=== PATIENT | male | born 1960 | race Caucasian/White ===

== ENCOUNTER 2016-09-24 13:31 | Emergency (ER) | payer BC ==
[~2016-09-24 13:31] MED LIST: *DENIES
[2016-09-24 13:48] LABS: BASOPHILS 0.3 %; BASOPHILS ABSOLUTE 0.02 10/3/uL (0.0-0.16); EOSINOPHILS 1.6 %; HEMATOCRIT 40.2 % (40.0-51.0); IMMATURE GRANULOCYTES 0.2 %; IMMATURE GRANULOCYTES ABSOLUTE 0.01 10/3/uL (0.0-0.11); LYMPHOCYTES 23.9 %; LYMPHOCYTES ABSOLUTE 1.52 10/3/uL (0.67-4.30); MANUAL DIFF NO %; MEAN CORPUS HGB CONC 34.8 g/dL (32.0-36.0); MEAN CORPUSCULAR HEMOGLOB 30.9 pg (26.0-34.0); MEAN CORPUSCULAR VOLUME 88.7 fL (80-100); MEAN PLATELET VOLUME 9.6 fL (9.2-13.0); MONOCYTES ABSOLUTE 0.51 10/3/uL (0.21-1.20); NEUTROPHILS ABSOLUTE 4.19 10/3/uL (2.02-8.40); PLATELET COUNT 287 10/3/uL (150-400); RBC DISTRIBUTION WIDTH 12.6 % (12.0-16.0); RED CELL COUNT 4.53 10/6/uL (4.7-6.1); WHITE BLOOD CELLS 6.4 10/3/uL (4.5-10.5)
[2016-09-24 13:56] LABS: INTERNATIONAL NORMAL RATI 0.9 UNITS (-); PARTIAL THROMBO TIME 27.5 SEC (22.5-37.2); PROTIME (NOT ORD) 12.3 SEC (12.0-14.5)
[2016-09-24 14:03] LABS: BUN (BLOOD UREA NITROGEN) 9 MG/DL (6-23); CALCIUM, SERUM 9.5 MG/DL (8.5-10.4); CHLORIDE, SERUM 103 MMOL/L (96-112); CO2 (CARBON DIOXIDE) 23 MMOL/L (24-34); CREATININE 0.99 MG/DL (0.70-1.30); GFR AFRICAN AMERICAN 98 ML/MIN (>=60); GFR NON AFRICAN AMERICAN 85 ML/MIN (>=60); GLUCOSE, SERUM 181 MG/DL (60-99); POTASSIUM, SERUM 3.2 MMOL/L (3.5-5.3); SODIUM, SERUM 136 MMOL/L (135-148)
[2016-09-24 14:05] LABS: CHEST PAIN PROFILE TAT 0 Hrs 21 Mins
[2016-09-24 16:25] LABS: CK-MB 1.3 NG/ML; CPK 125 U/L (0-200)
[2016-09-26] MEDS ORDERED: ASAB PO (10:13)
[2016-09-26] MEDS ORDERED: LIPITOR40 PO (10:13)
[2016-09-26] MEDS ORDERED: PLAVIX PO (10:14)
[2016-09-26] MEDS ORDERED: PRIN2.5 PO (10:14)
[2016-09-26] MEDS ORDERED: TOPXL25 PO (10:14)
[2016-09-26] MEDS ORDERED: NITROQUICK0.4 MG SL (10:23)
[2016-12-17] MEDS ORDERED: LOP25 PO (10:49)
[2016-12-17] MEDS ORDERED: NORV25 PO (10:52)
== END 2016-09-24 13:40 | disposition admitted as inpatient to this hospital (09) ==
LOC: ER 13:31
PROVIDERS: Emergency Medicine
DX: I21.3 ST elevation (STEMI) myocardial infarction of unspecified site (principal); I10 Essential (primary) hypertension; F17.200 Nicotine dependence, unspecified, uncomplicated
CPT/HCPCS: 71010; 80048; 82550; 82553; 83735; 83880; 84484; 85025; 85347; 85610; 85730; 93005; 96374; 96375; 99291; A9270-GY; J0583; J2250; J3010